=== PATIENT | male | born 1965 | race African-American/Black ===

== ENCOUNTER 2018-11-18 18:10 | Emergency (ER) | payer BC, OTHER ==
[~2018-11-18] VITALS: Ht 167.6 cm; Wt 108.4 kg
[2018-11-18 19:16] LABS: ABSOLUTE NEUTROPHILS 5.4 thou/uL (1.4-8.2); BASOPHILS 0.5 % (0.0-2.0); EOSINOPHILS 1.1 % (0.0-3.0); HEMATOCRIT 47.6 % (42.0-52.0); HEMOGLOBIN 16.7 gm/dL (14.0-18.0); MCH 33.1 pg (26.0-34.0); MCV 94.4 fL (80.0-100.0); PLATELET COUNT 235 thou/uL (150-400); POLYS 71.4 % (36.0-66.0); RBC 5.04 mil/uL (4.50-6.00); RDW 12.9 % (10.5-14.5); WBC 7.6 thou/uL (4.0-11.0)
[2018-11-18 19:18] LABS: CALCIUM 9.5 mg/dL (8.5-10.1); CREATININE 1.3 mg/dL (0.7-1.3); POTASSIUM 3.8 mmol/L (3.5-5.1)
[2018-11-18 19:26] LABS: ALBUMIN 4.2 g/dL (3.4-5.0); TOTAL BILIRUBIN 0.4 mg/dL (<0.1-1.0); TOTAL PROTEIN 8.4 g/dL (6.4-8.2)
[2018-11-18 19:47] LABS: URINE BILIRUBIN NEGATIVE (Negative); URINE BLOOD NEGATIVE (Negative); URINE CLARITY CLEAR; URINE COLOR YELLOW; URINE GLUCOSE-RANDOM* NEGATIVE (Negative); URINE KETONES NEGATIVE (Negative); URINE LEUKOCYTES-REFLEX NEGATIVE (Negative); URINE NITRITE-REFLEX NEGATIVE (Negative); URINE PROTEIN (DIPSTICK) NEGATIVE (Negative); URINE UROBILINOGEN 0.2 E.U./dl (0.2-1.0)
[2018-11-18] MEDS ORDERED: NORVASC10 MG PO (20:08)
[2018-11-18 20:18] VITALS: BP 190/74
--- NOTE | 2018-11-19 09:42 | EKG ---
[address] [address] ELECTROCARDIOGRAM REPORT Name: JERSON SHELTON Room #: [facility] PARKBettinaBettina#: [id number] Admission: 11/18/18 Attend Phys: Discharge: 11/18/18 Date of : 65 Report #: [id number] THIS REPORT FOR: //name// [facility] ED Test Date: 2018-11-18 Test Time: 19:26:12 Pat Name: JERSON SHELTON Department: Room: Gender: M Numerologist: melba : 1965 Requested By: Davis Collins Order Number: [id number] MD: Fito Yepez Measurements Intervals [place] Rate: 61 P: 49 [place]: 188 QRS: 39 QRSD: 95 T: 141 QT: 428 QTc: 431 Interpretive Statements Sinus rhythm Abnormal T, consider ischemia, lateral leads No previous ECG available for comparison Electronically Signed On 11-19-2018 9:42:27 [employer]END[employer] by Fito Yepez [email or web address] <ELECTRONICALLY SIGNED> By: Fito Yepez MD, [facility] 11/19/18 0942 [id number] 25 Fito Yepez MD, FACC /EPI
== END 2018-11-18 20:24 | disposition home or self-care (01) ==
LOC: ER 18:10
PROVIDERS: Emergency Medicine
DX: I10 Essential (primary) hypertension (principal)